=== PATIENT | male | born 1970 | race Two or more races ===

== ENCOUNTER 2022-03-28 04:48 | Emergency (ER) | payer MEDICAID ==
[~2022-03-28] VITALS: Ht 182.9 cm; Wt 98.2 kg
[2022-03-28 04:49] VITALS: BP 151/95
[2022-03-28] MEDS ORDERED: LISI-894 PO (04:55)
== END 2022-03-28 06:48 | disposition left against medical advice (07) ==
LOC: EMS 04:50
DX: Z53.21 Procedure and treatment not carried out due to patient leaving prior to being seen by health care provider (principal)
CPT/HCPCS: 82962